=== PATIENT | female | born 1930 | race Caucasian/White ===

== ENCOUNTER 2019-03-17 18:16 | Emergency (ER) | payer MEDICARE ==
[~2019-03-17] VITALS: Ht 167.6 cm; Wt 63.0 kg
[2019-03-17] MEDS ORDERED: ONDANSETRON HCL INJ 2MG/ML 2ML 2 MG/ML VIAL IV NR (19:00)
[2019-03-17 19:37] LABS: BILIRUBIN,URINE NEGATIVE (NEGATIVE); CLARITY,URINE CLEAR (CLEAR); COLOR,URINE YELLOW (YELLOW); KETONES,URINE 1+ (NEGATIVE); LEUKOCYTE ESTERASE ,URINE NEGATIVE (NEGATIVE); NITRITE,URINE NEGATIVE (NEGATIVE); PROTEIN,URINE DIPSTICK NEGATIVE (NEGATIVE); URINE UROBILINOGEN 0.2 mg/dL (0.2 - 1)
[2019-03-17 19:52] LABS: BACTERIA,URINE RARE /HPF; EPITHELIAL CELLS,URINE RARE /LPF
--- NOTE | 2019-03-17 20:30 | Diagnostic Imaging Report ---
EXAMINATION: CHEST SINGLE (NOT PORTABLE) COMPARISON: None INDICATION: Nausea ^weakness ^[id number] ^2000 ^Y DISCUSSION: Frontal view of the chest obtained at 2010 hours. HEART AND MEDIASTINUM: The heart is normal in size. The aorta is tortuous. LINES: None. LUNGS: The lungs are well inflated and clear. No pneumonia or pulmonary edema. PLEURA: No pleural effusion or pneumothorax. BONES AND SOFT TISSUES: No focal osseous lesion. The soft tissues are normal. IMPRESSION: No acute cardiopulmonary disease. Signed by: Dr. Renetta Bullock MD on 03/17/2019 8:26 PM
[2019-03-17 20:49] LABS: BASOPHILS # (AUTO) 0.1 (0.0-0.1); BASOPHILS % 0.5 % (0.0-1.0); EOSINOPHILS % 0.1 % (0.0-6.0); HEMATOCRIT 41.8 % (34.2-44.1); HEMOGLOBIN 13.2 g/dL (12.0-16.0); LYMPHOCYTES # (AUTO) 1.1 (1.0-3.2); LYMPHOCYTES % 9.4 % (18.0-39.1); MEAN CORPUSCULAR HEMOGLOBIN 30.1 pg (28-32); MEAN CORPUSCULAR HGB CONC 31.6 g/dL (31-35); MEAN CORPUSCULAR VOLUME 95.2 fL (81-99); MONOCYTES # (AUTO) 0.2 (0.2-0.8); MONOCYTES % 1.4 % (4.4-11.3); NEUTROPHILS # (AUTO) 10.5 (2.1-6.9); PLATELET COUNT 286 x10e3/uL (140-360); RED BLOOD COUNT 4.39 x10e6/uL (3.6-5.1); RED CELL DISTRIBUTION WIDTH 13.4 % (11.7-14.4)
[2019-03-17 21:12] LABS: ALBUMIN 4.4 g/dL (3.5-5.0); ALBUMIN/GLOBULIN RATIO 1.3 (0.8-2.0); ANION GAP 13.7 mmol/L (8-16); CALCIUM 9.4 mg/dL (8.4-10.2); CREATININE, SERUM 0.93 mg/dL (0.57-1.11); POTASSIUM 3.7 mmol/L (3.5-5.1)
[2019-03-17 21:18] LABS: CREATINE KINASE MB 3.7 ng/mL (0-5.0)
[2019-03-17 22:12] VITALS: BP 135/75
== END 2019-03-17 22:18 | disposition home or self-care (01) ==
LOC: ER 18:16
DX: R11.2 Nausea with vomiting, unspecified (principal); I10 Essential (primary) hypertension; E11.9 Type 2 diabetes mellitus without complications; K21.9 Gastro-esophageal reflux disease without esophagitis; E78.5 Hyperlipidemia, unspecified; I48.91 Unspecified atrial fibrillation; F03.90 Unspecified dementia, unspecified severity, without behavioral disturbance, psychotic disturbance, mood disturbance, and anxiety
CPT/HCPCS: 36415; 71045; 80053; 81001; 82550; 82553; 84484; 85025; 93005; 99283; J2405

== ENCOUNTER 2019-10-04 09:19 | Emergency (ER) | payer MEDICARE ==
[~2019-10-04] VITALS: Ht 167.6 cm; Wt 63.0 kg
--- OUTSIDE RECORDS SUMMARY | 2019-10-04 09:21 | XMS REPORT ---
Author Author [facility] t Organization [facility] t Address [address] [facility]. [address] [place] [address] Phone Unavailable Care Team Providers Care Miner Assistant Name Role Phone SUZY LYNN MD PCP Michael ARMANDO Attphys Unavailable Delmy Sewell Attphys Problems This patient has no known problems. Allergies, Adverse Reactions, Alerts Allergy Name Allergy Type Status Severity Reaction(s) Onset Date Inacti ve Date Treating Clinician Comments Source Iodine Allergy to Substance Active Mild HIVES 2019-03-17 00:00:00 [facility] Social History Social Habit Start Date Stop Date Quantity Comments Source Social History 2016-12-21 04:59:00 2016-12-21 04:59:00 [facility] Medications This patient has no known medications. Procedures Procedure Date / Time Performed Performing Clinician [facility] e X-ray of chest, single view 2019-03-17 00:00:00 LUCÍA ARMANDO [facility] Encounters Start Date/Time End Date/Time Encounter Type Admission Type Attendi [facility] Care Department Encounter ID Source 2019-03-17 18:16:00 2019-03-17 22:18:00 Departed Emergency Room 1 FERMIN ARMANDO [facility] [id number] [facility] 2016-12-20 14:32:00 2016-12-21 04:59:00 Outpt Diag Services [facility] Out[facility] [place] [id number] WILLARD Vazquez 2016-12-20 09:32:00 2016-12-20 23:59:00 Outpatient Eneida Sewell [facility] [id number] Results Test Description Test Time Test Comments Results Result Comments Source Creatine Kinase MB 2019-03-17 21:21:00 Test Item Creatine Kinase MB (test code = 09043-7) 3.70 0-5.0 [facility] [id number] 21:21:00* Test Item Value Reference Range Interpretation Comments Troponin I (test code = MFS7796) 0.011 0-0.300 [facility] Qjogh8752-64-26 21:15:00* Test Item Value Reference Range Interpretation Comments Sodium Level (test code = 2951-2) 135 136-145 [facility] Zjdmx1648-44-45 21:15:00* Test Item Value Reference Range Interpretation Comments Potassium Level (test code = 2823-3) 3.7 3.5-5.1 [facility]Chloride Qiyfg1316-69-23 21:15:00* Test Item Value Reference Range Interpretation Comments Chloride Level (test code = 2075-0) 100 98-107 [facility]Car[facility] Dioxide Auwlb0170-70-05 21:15:00* Test Item Value Reference Range Interpretation Comments Carbon Dioxide Level (test code = 2028-9) 25 22-29 [facility] HospitalAnion Dvi9020-82-44 21:15:00* Test Item Value Reference Range Interpretation Comments Anion Gap (test code = 67354-0) 13.7 8-16 [facility] HospitalBlood Urea Chtdgfyy3404-64-39 21:15:00* Test Item Value Reference Range Interpretation Comments Blood Urea Nitrogen (test code = 3094-0) 16 7-26 [facility] HospitalCreatinine2019-11-05 21:15:00* Test Item Value Reference Range Interpretation Comments Creatinine (test code = 2160-0) 0.93 0.57-1.11 [facility]BUN/Creatinine Jodep4443-42-86 21:15:00* Test Item Value Reference Range Interpretation Comments BUN/Creatinine Ratio (test code = 3097-3) 17 6-25 [facility] HospitalEstimat Glomerular Filtration Rate 2019-03-17 21:15:00* Test Item Value Reference Range Interpretation Comments Estimat Glomerular Filtration Rate (test code = 285223771) 57 >60 Ranges were taken from the National Kidney Disease Education Program and the [facility] Kidney Foundation literature.Reference ranges:60 or greater: Mdlrrk35-90 ( for 3 consecutive months): Chronic kidney disease 15 or less: Kidney failureKell West Regional HospitalGlucose Kosct8225-46-47 21:15:00* Test Item Value Reference Range Interpretation Comments Glucose Level (test code = XJM0116) 200 74-118 [facility] HospitalCalcium Eqwla9373-29-08 21:15:00* Test Item Value Reference Range Interpretation Comments Calcium Level (test code = 72210-0) 9.4 8.4-10.2 [facility] HospitalTotal Ltwphhycs5595-08-00 21:15:00* Test Item Value Reference Range Interpretation Comments Total Bilirubin (test code = 1975-2) 0.5 0.2-1.2 [facility] HospitalAspartate Amino Transf (AST/SGOT) 2019-03-17 21:15:00* Test Item Value Reference Range Interpretation Comments Aspartate Amino Transf (AST/SGOT) (test code = Aspartate Amino Transf (AST/SGOT)) 29 5-34 [facility] HospitalAlanine Aminotransferase (ALT/SGPT) 2019-03-17 21:15:00* Test Item Value Reference Range Interpretation Comments Alanine Aminotransferase (ALT/SGPT) (test code = 1742-6) 45 0-55 [facility] HospitalTotal Mmijfsz1920-30-50 21:15:00* Test Item Value Reference Range Interpretation Comments Total Protein (test code = 2885-2) 7.9 6.5-8.1 [facility] HospitalAlbumin2019-11-05 21:15:00* Test Item Value Reference Range Interpretation Comments Albumin (test code = 1751-7) 4.4 3.5-5.0 [facility] HospitalGlobulin2019-11-05 21:15:00* Test Item Value Reference Range Interpretation Comments Globulin (test code = 27485-5) 3.5 2.3-3.5 [facility] HospitalAlbumin/Globulin Zdlvk5711-23-12 21:15:00 * Test Item Value Reference Range Interpretation Comments Albumin/Globulin Ratio (test code = 1759-0) 1.3 0.8-2.0 [facility] HospitalAlkaline Dydfmlhokml2292-36-22 21:15:00* Test Item Value Reference Range Interpretation Comments Alkaline Phosphatase (test code = 6768-6) 100 40-150 [facility] HospitalCreatine Bdyudl7793-56-27 21:15:00* Test Item Value Reference Range Interpretation Comments Creatine Kinase (test code = 2157-6) 182 29-168 [facility] HospitalWhite Blood Hmxro6138-36-69 20:51:00* Test Item Value Reference Range Interpretation Comments White Blood Count (test code = 6690-2) 11.87 4.8-10.8 [facility] HospitalRed Blood Isueg0644-52-91 20:51:00* Test Item Value Reference Range Interpretation Comments Red Blood Count (test code = 789-8) 4.39 3.6-5.1 [facility] HospitalHemoglobin2019-11-05 20:51:00* Test Item Value Reference Range Interpretation Comments Hemoglobin (test code = 90320-2) 13.2 12.0-16.0 [facility] HospitalHematocrit2019-11-05 20:51:00* Test Item Value Reference Range Interpretation Comments Hematocrit (test code = 4544-3) 41.8 34.2-44.1 [facility] HospitalMean Corpuscular Jqwgit4096-43-84 20:51:00* Test Item Value Reference Range Interpretation Comments Mean Corpuscular Volume (test code = 787-2) 95.2 81-99 [facility] HospitalMean Corpuscular Xfpziwebdp6268-96-73 20:51:00* Test Item Value Reference Range Interpretation Comments Mean Corpuscular Hemoglobin (test code = 785-6) 30.1 28-32 [facility] HospitalMean Corpuscular Hemoglobin Concent 2019-03-17 20:51:00* Test Item Value Reference Range Interpretation Comments Mean Corpuscular Hemoglobin Concent (test code = 786-4) 31.6 31-35 [facility] HospitalRed Cell Distribution Rdaap7246-16-41 20:51:00* Test Item Value Reference Range Interpretation Comments Red Cell Distribution Width (test code = 77994-1) 13.4 11.7 -14.4 [facility] HospitalPlatelet Rdpxy8794-81-62 20:51:00* Test Item Value Reference Range Interpretation Comments Platelet Count (test code = 777-3) 286 140-360 [facility] HospitalNeutrophils (%) (Auto)2019-03-17 20:51:00 * Test Item Value Reference Range Interpretation Comments Neutrophils (%) (Auto) (test code = 59707-1) 88.0 38.7-80.0 [facility] HospitalLymphocytes (%) (Auto)2019-03-17 20:51:00 * Test Item Value Reference Range Interpretation Comments Lymphocytes (%) (Auto) (test code = 736-9) 9.4 18.0-39.1 [facility] HospitalMonocytes (%) (Auto)2019-03-17 20:51:00* Test Item Value Reference Range Interpretation Comments Monocytes (%) (Auto) (test code = 5905-5) 1.4 4.4-11.3 [facility] HospitalEosinophils (%) (Auto)2019-03-17 20:51:00 * Test Item Value Reference Range Interpretation Comments Eosinophils (%) (Auto) (test code = 713-8) 0.1 0.0-6.0 [facility] HospitalBasophils (%) (Auto)2019-03-17 20:51:00* Test Item Value Reference Range Interpretation Comments Basophils (%) (Auto) (test code = 706-2) 0.5 0.0-1.0 [facility] HospitalIM GRANULOCYTES %2019-03-17 20:51:00* Test Item Value Reference Range Interpretation Comments IM GRANULOCYTES % (test code = IM GRANULOCYTES %) 0.6 0.0- 1.0 [facility] HospitalNeutrophils # (Auto)2019-03-17 20:51:00* Test Item Value Reference Range Interpretation Comments Neutrophils # (Auto) (test code = 751-8) 10.5 2.1-6.9 [facility] HospitalLymphocytes # (Auto)2019-03-17 20:51:00* Test Item Value Reference Range Interpretation Comments Lymphocytes # (Auto) (test code = 42851-0) 1.1 1.0-3.2 [facility] HospitalMonocytes # (Auto)2019-03-17 20:51:00* Test Item Value Reference Range Interpretation Comments Monocytes # (Auto) (test code = 742-7) 0.2 0.2-0.8 [facility] HospitalEosinophils # (Auto)2019-03-17 20:51:00* Test Item Value Reference Range Interpretation Comments Eosinophils # (Auto) (test code = 711-2) 0.0 0.0-0.4 [facility] HospitalBasophils # (Auto)2019-03-17 20:51:00* Test Item Value Reference Range Interpretation Comments Basophils # (Auto) (test code = 704-7) 0.1 0.0-0.1 [facility] HospitalAbsolute Immature Granulocyte (auto 2019-03-17 20:51:00* Test Item Value Reference Range Interpretation Comments Absolute Immature Granulocyte (auto (jessica t code = Absolute Immature Granulocyte (auto) 0.07 0-0.1 [facility] HospitalCHEST SINGLE (NOT PORTABLE)2019-03-17 20:26:00 [place] [address] Patient Name: LATONYA LAUREANO MR #: [id number] : 1930 Age/Sex: 89/F Req #: [id number] Adm Physician: Ordered by: FERMIN ARMANDO MD Report #: [id number] Location: ER Room/Bed: Procedure: 1105-0 098 DX/CHEST SINGLE (NOT PORTABLE) Exam Date: 03/17/19 Exam Time: 1999 REPORT STATUS: S igned EXAMINATION: CHEST SINGLE (NOT PORTABLE) COMPARISON: None INDICATION: Nausea weakness [id number] Y DISCUSSION: Frontal view of the chest obtained at 2010 hours. HEART AND MEDIASTINUM: T he heart is normal in size. The aorta is tortuous. LINES: None. NATACHA GS: The lungs are well inflated and clear. No pneumonia or pulmonary edema. PLEURA: No pleural effusion or pneumothorax. BONES AND SOFT TISSUES: No focal osseous lesion. The soft tissues are normal. IMPRESSION: No ac [place] cardiopulmonary disease. Signed by: Dr. Renetta Bullock MD on 8:26 PM Dictated By: RENETTA BULLOCK MD 25 Transcribed By: KENTON on 03/17/192025 COPY TO: FERMIN ARMANDO MD Urine FCE7367-10-16 19:52:00* Test Item Value Reference Range Interpretation Comments Urine WBC (test code = 5821-4) NONE 0-5 [facility] HospitalU[facility] GYD9837-10-12 19:52:00* Test Item Value Reference Range Interpretation Comments Urine RBC (test code = 77263-6) NONE 0-5 [facility] HospitalUrine Eewfiiek4392-97-72 19:52:00* Test Item Value Reference Range Interpretation Comments Urine Bacteria (test code = 69303-1) RARE NONE [facility] HospitalUrine Epithelial Oualh6341-70-12 19:52:00 * Test Item Value Reference Range Interpretation Comments Urine Epithelial Cells (test code = 35445-9) RARE NONE [facility] HospitalUrine Bysyb5230-67-61 19:37:00* Test Item Value Reference Range Interpretation Comments Urine Color (test code = 5778-6) YELLOW YELLOW [facility] HospitalUrine Nizeznd1218-56-47 19:37:00* Test Item Value Reference Range Interpretation Comments Urine Clarity (test code = 30873-8) CLEAR CLEAR [facility] HospitalUrine Specific Lnqehii1709-56-89 19:37:00 * Test Item Value Reference Range Interpretation Comments Urine Specific [place] (test code = 5811-5) 1.015 1.010-1.02 5 [facility] HospitalUrine pE7758-64-04 19:37:00* Test Item Value Reference Range Interpretation Comments Urine pH (test code = 87940-5) 7 5-7 [facility] HospitalU[facility] Leukocyte Ddtcmsdj4647-22-85 19:37:00* Test Item Value Reference Range Interpretation Comments Urine Leukocyte Esterase (test code = 65220-5) NEGATIVE NEGATIV E [facility] HospitalUrine Pbvssrg2287-69-11 19:37:00* Test Item Value Reference Range Interpretation Comments Urine Nitrite (test code = 06613-6) NEGATIVE NEGATIVE [facility] HospitalUrine Exylhja3950-19-96 19:37:00* Test Item Value Reference Range Interpretation Comments Urine Protein (test code = 44017-9) NEGATIVE NEGATIVE [facility] HospitalUrine Glucose (UA)2019-03-17 19:37:00* Test Item Value Reference Range Interpretation Comments Urine Glucose (UA) (test code = 20970-5) 2+ NEGATIVE [facility] HospitalUrine Jdrkmhv0444-50-09 19:37:00* Test Item Value Reference Range Interpretation Comments Urine Ketones (test code = 10334-4) 1+ NEGATIVE [facility] HospitalU[facility] Lhzmazhsyjso3045-52-28 19:37:00* Test Item Value Reference Range Interpretation Comments Urine Urobilinogen (test code = 81410-4) 0.2 0.2-1 [facility] HospitalUrine Lauolcbox6704-02-23 19:37:00* Test Item Value Reference Range Interpretation Comments Urine Bilirubin (test code = 1977-8) NEGATIVE NEGATIVE [facility] HospitalUrine Jrahg4022-58-44 19:37:00* Test Item Value Reference Range Interpretation Comments Urine Blood (test code = 97791-0) NEGATIVE NEGATIVE [facility] BIL[facility]AL GLORIA CAD DIGITAL 2018-09-09 13:32:58 - SCR MAMM BILATERAL GLORIA CAD DIGITALBILATERAL DIGITAL SCREENING MAMMOGRAM 3D/2D WITH CAD: 09/08/2018CLINICAL: Asymptomatic. Digital breast tomosynthesis was performed in addition to routine CC and MLO views. Current mammographic images were evaluated by either a [employer] M-Vu or a 3dplusme ImageChecker CAD (computer aided detection system). Comparison is made to exams dated 08/08/2017 mammogram, 07/31/2016 mammogram, and 01/29/2013 mammogram - [facility]-. The tissue of both breasts is heterogeneously dense. This may lower the sensitivity of mammography. No suspicious mass, architectural distortion, malignant type calcification, or lymph node abnormality detected. Breast architecture is stable compared to prior exams.IMPRESSION: NEGATIVEThere is no mammographic evidence of malignancy. Resume annual screening mammography in one year. Holland cortes/penrad:09/09/2018 13:32:58 Software Sales Consultant: Nithya WALKER, [facility]-FWletter sent: BIRADS 1-2 Normal Mammogram BI-RADS: 1 Negative
--- OUTSIDE RECORDS SUMMARY | 2019-10-04 09:21 | XMS REPORT | Continuity of Care Document ---
Author Author Juan Chaudhary, LATONYA Salazar Organization [employer] Address Unknown Phone Unavailable Care Team Providers Care Casino Worker Name Role Phone [employer] Unavailable Un available Problems No Data Provided for This Section Medications No Data Provided for This Section Allergies, Adverse Reactions, Alerts No Known Medication Allergies Immunizations No Data Provided for This Section Results No Data Provided for This Section Pathology Reports No Data Provided for This Section Diagnostic Reports Report Value Date Source Brain wo contrast MRI PATIENT NAME: LATONYA LAUREANO : 1930; Age: 86 years y/o Female MR: [id number] STUDY: Brain wo contrast MRI 12/20/2016 10:01 AM CDT ORDERING PHYSICIAN: Eneida Sewell MD CLINICAL INDICATION: - R41.3 Other amnesia, R47.89 Other speech disturbances; COMPARISON: None TECHNIQUE: Multiplanar noncontrast MRI of the brain is performed. FINDINGS: BRAIN PARENCHYMA: There is no hemorrhage, mass lesion, extra axial collection, cerebral edema, or mass effect. Diffusion sequences are normal. Brain volume is age-appropriate with only mild generalized volume loss most evident in the temporal lobes. There is no focal castañeda or white matter signal abnormality. The cerebellar tonsils are above foramen magnum. The pituitary gland is age- appropriate. CEREBELLOPONTINE REGIONS AND SKULL BASE: The cerebellopontine angles appear unremarkable. No skull base abnormality is seen. VENTRICLES/SULCI/CISTERNS: The ventricles are normal in size and configuration. The basal cisterns are patent. VISUALIZED VESSELS: Major intracranial flow voids are preserved. ORBITS, VISUALIZED PARANASAL SINUSES AND MASTOIDS: Paranasal sinuses are clear. The mastoid air cells are clear. No orbital pathology is seen. IMPRESSION: 1. Mild volume loss most evident in the temporal lobes 2. Otherwise normal MRI brain. No substa ntial chronic ischemic changes 12/20/2016 [place] Consultation Notes No Data Provided for This Section Discharge Summaries No Data Provided for This Section History and Physicals No Data Provided for This Section Vital Signs No Data Provided for This Section Encounters Location Location Details Encounter Type Encounter Number Reason For Visit Attending Provider ADM Date DC Date Status Source [facility] Outpatient Imaging - [place] Outpt Dia Services [id number] Eneida Sewell 12/20/2016 12/21/2016 [facility] [place] Procedures No Data Provided for This Section Assessment and Plan No Data Provided for This Section Plan of Care No Data Provided for This Section Social History Social History Date Source No data available for this section 12/21/2016 [facility] [place] Family History No Data Provided for This Section Advance Directives No Data Provided for This Section Functional Status No Data Provided for This Section
--- OUTSIDE RECORDS SUMMARY | 2019-10-04 09:21 | XMS REPORT | Summary of Care ---
Author Author [facility] Organization [facility] Address Unknown Phone Unavailable Encounter HQ Encntr_alias(FIN) [id number] Date(s): 12/20/16 - 12/20/16 [facility] Outpatient Imaging - [place] [address] [place] [address] [phone] Discharge Disposition: Home or Self Care Attending Physician: Eneida Sewell MD Vital Signs No data available for this section Problem List No data available for this section Allergies, Adverse Reactions, Alerts No data available for this section Medications No data available for this section Results No data available for this section Immunizations No data available for this section Procedures No data available for this section Social History No data available for this section Assessment and Plan No data available for this section
[2019-10-04] MEDS ORDERED: LIDOCAINE 1% W/EPINEPHRINE 20 ML VIAL INJ ONE (09:45)
--- NOTE | 2019-10-04 10:09 | Emergency Department Note ---
History of Present Illnes History of Present Illness Chief Complaint: General Medicine Complaints History of Present Illness This is a 89 year old female arrived to the ED after a fall- resulting in forehead laceration. Pt states she accidentally rolled off her bead. Historian: Patient, Family Member Arrival Mode: Car Spout Liner Required: No Onset (how long ago): hour(s) Severity: mild Onset quality: sudden Chronicity: new Relieving factors: none Exacerbating factors: none Associated symptoms: denies other symptoms Treatments prior to arrival: none Past Medical/Family History Physician Review I have reviewed the patient's past medical and family history. Any updates have been documented here. Past Medical History Recent Fever: No Clinical Suspicion of Infectio: No New/Unexplained Change in Ment: No Past Medical History: Hypertension, Diabetes, A-Fib, GERD, Hyperlipedemia Other Medical History: DEMENTIA ALLERGIES Past Surgical History: Hysterectomy Social History Smoking Cessation: Never Smoker Counseling Performed: No Alcohol Use: None Any Illegal Drug Use: No TB Exposure/Symptoms: No Physically hurt or threatened: No Family History Family history of heart diseas: No Other Last Tetanus: UTD Any Pre-Existing Lines (PICC,: No Is patient up to date on immun: Yes Last Flu: utd Last Pneumovax: utd Review of Systems Review of Systems Constitutional: no symptoms, other (fall with forehead laceration ) EENTM: no symptoms Cardiovascular: no symptoms Respiratory: no symptoms Gastrointestinal: no symptoms Genitourinary: no symptoms Musculoskeletal: no symptoms Neurological: no symptoms Psychological: no symptoms Endocrine: no symptoms Hematological/Lymphatic: no symptoms Review of other systems All other systems reviewed and negative. Physical Exam Related Data Allergies: Coded Allergies: iodine (Verified Allergy, Mild, HIVES, 10/04/19) Triage Vital Signs Vital Signs Date Time Temp Pulse Resp B/P (MAP) Pulse Ox O2 Delivery O2 Flow Rate FiO2 10/04/19 09:24 98.9 72 16 155/88 96 Vital signs reviewed: Yes Physical Exam CONSTITUTIONAL Constitutional: well-developed, well-nourished HENT HENT: normocephalic, oropharynx clear/moist, nose normal, other (~5cm laceration over forhead, no periorbital ecchymosis, no battles sign) HENT L/R: left ext ear normal, right ext ear normal EYES Eyes: PERRL, conjunctivae normal NECK Neck: ROM normal PULMONARY Pulmonary: effort normal, breath sounds normal CARDIOVASCULAR Cardiovascular: regular rhythm, heart sounds normal, capillary refill normal, normal rate GASTROINTESTINAL Abdominal: soft, nontender, bowel sounds normal GENITOURINARY Genitourinary: exam deferred SKIN Skin: warm, dry MUSCULOSKELETAL Musculoskeletal: ROM normal NEUROLOGICAL Neurological: alert, no gross motor or sensory deficits, other (pt with dementia at baseline mental status) PSYCHOLOGICAL Psychological: mood/affect normal, judgement normal Results Imaging Imaging results reviewed: Yes Procedures Laceration Laceration: Laceration 1 Site: scalp Description: linear Depth: involves muscle layer Pre-repair: irrigated extensively Skin layer closed with: vicryl Size (cm): 4-0 Number of sutures: 6 Technique: simple, interrupted Subcutaneous layer closed w: chromic gut Size (cm): 5-0 Technique: running Critical Care Time Subsequent provider I assumed direction of critical care for this patient from another provider of my specialty. Assessment & Plan Assessment & Plan Final Impression: (1) Scalp laceration Assessment & Plan Laceration repair CT Brain CT C-spine outpt follow up Depart Disposition: HOME, SELF-CARE Last Vital Signs Date Time Temp Pulse Resp B/P (MAP) Pulse Ox O2 Delivery O2 Flow Rate FiO2 10/04/19 09:41 69 18 161/70 100 10/04/19 09:24 98.9 Home Meds Active Scripts Amoxicillin/Potassium Clav (AUGMENTIN 875-125 TABLET) 1 Each Tablet, 875 MG PO DAILY, #10 TAB Prov:IAN CERVANTES DO 10/04/19 Medications in the ED Lidocaine/ Epinephrine 10 ml ONCE ONCE INJ ; Start 10/04/19 at 09:45; Stop 10/04/19 at 09:47; Status DC IAN CERVANTES DO October 04, 2019 09:54
--- NOTE | 2019-10-04 11:13 | Diagnostic Imaging Report ---
CT BRAIN WO HISTORY: Fall COMPARISON: None. Technique: Noncontrast axial scans were obtained from skull base to the vertex. Coronal and sagittal reconstructions obtained from the axial data. One or more of the following dose reduction techniques were used: Automated exposure control, adjustment of the mA and/or kV according to patient size, and/or utilization of iterative reconstruction technique. DISCUSSION: Scalp/Skull: Frontal scalp hematoma/laceration is present. No calvarial fracture. Brain sulci: Mildly prominent. Ventricles: Compensatory dilatation. Extra-axial spaces: No masses or fluid collections. Carotid and vertebral artery calcifications are present. Parenchyma: Mild bilateral deep white matter hypodensity is likely chronic microvascular ischemic change. Otherwise, no masses, hemorrhage, or large vascular territory acute infarct. Dural sinuses: No abnormal densities. Sellar/Suprasellar region: Intact. Skull base: Intact. Incidental findings: None. IMPRESSION: 1. No acute intracranial abnormalities. 2. Mild supratentorial chronic microvascular ischemic change. Mild generalized cerebral volume loss. Signed by: Dr. Guillermo Duran M.D. on 10/04/2019 11:09 AM
--- NOTE | 2019-10-04 11:19 | Diagnostic Imaging Report ---
CT CERVICAL SPINE WO HISTORY: Fall COMPARISON: None. TECHNIQUE: CT of the cervical spine without contrast. Sagittal and coronal reformations were created. One or more of the following dose reduction techniques were used: Automated exposure control, adjustment of the mA and/or kV according to patient size, and/or utilization of iterative reconstruction technique. FINDINGS: Cervical lordosis is preserved. There is no significant scoliosis. Mild bone demineralization limits evaluation. No definite acute fracture or compression deformity is seen. The craniocervical junction is intact. No gross spinal canal masses are seen. The paravertebral and paraspinal soft tissues are unremarkable. Mild to moderate multilevel spondylotic changes are most prominent at C4-C5 and C5-C6. Grade 1 anterolisthesis of T1 on T2 is due to facet arthrosis. There is at least mild to moderate canal stenosis from C3-C4 to C5-C6 due to posterior disc osteophyte complexes and ligamentum flavum thickening. Moderate to severe bilateral foraminal stenoses at C4-C5 and C5-C6 are due to uncovertebral and facet arthrosis. Atlantoaxial arthrosis is present as well. Mild bilateral carotid bulb calcified plaque is present. IMPRESSION: 1. No acute osseous abnormalities. 2. Mild to moderate multilevel spondylosis, most prominent at C4-C5 and C5-C6. Signed by: Dr. Guillermo Duran M.D. on 10/04/2019 11:16 AM
--- NOTE | 2019-10-04 11:31 | NUR ---
lac repair done by dr donita bergeron approx 2.5-3 in long
[2019-10-04] MEDS ORDERED: BACITRACIN ZINC 0.9GM TP ONE ×2 (11:40→11:45)
[2019-10-04 11:43] VITALS: BP 161/70
[2019-10-04] MEDS ORDERED: AUGMENTIN 875-1 EACH PO (11:47)
== END 2019-10-04 11:49 | disposition home or self-care (01) ==
LOC: ER 09:19
DX: S01.01XA Laceration without foreign body of scalp, initial encounter (principal); W06.XXXA Fall from bed, initial encounter; Y93.84 Activity, sleeping; Y92.003 Bedroom of unspecified non-institutional (private) residence as the place of occurrence of the external cause; I10 Essential (primary) hypertension; E11.9 Type 2 diabetes mellitus without complications; E78.5 Hyperlipidemia, unspecified; I48.91 Unspecified atrial fibrillation; K21.9 Gastro-esophageal reflux disease without esophagitis
CPT/HCPCS: 70450; 72125; 99283